=== PATIENT | male | born 1955 | race Two or more races ===

== ENCOUNTER 2025-02-23 16:07 | Emergency (ER) | payer MEDICARE, MEDICAID, SELFPAY ==
[2025-02-23 16:29] VITALS: BP 167/99; PULSE 77; RESP 18; TEMP 36.5; O2SAT 97; BMI 28.5
--- NOTE | 2025-02-23 16:39 | XR_ITS ---
Examination: Ribs, right, with PA chest, 5 views Technique: Chest PA, RIBS AP, RPO, LPO, AP coned lower ribs 5 views Exam date and time: February 23, 2025, 1644 hours INDICATIONS: Injury to the right chest 3 days ago with rib pain Findings: Normal heart size No pneumothorax Moderate osteopenia Old appearing fracture right fifth rib anteriorly No acute fractures IMPRESSION: Negative for pneumothorax pulmonary contusion or hemothorax No acute rib fractures depicted
--- NOTE | 2025-02-23 16:41 | EDRME_ITS ---
Rapid Medical Screening Exam RME Arrival date/time: 02/23/25 16:07 70-year-old male presents to the emergency department for complaints of right- sided rib pain patient reports he was reaching over a fence on Friday to try to get his dog and when he did so he felt pain immediately in his right side of his ribs patient reports pain since then Chief Complaint: Back Pain/Injury Vital signs: Vital Signs Temperature 97.7 F 02/23/25 16:29 Pulse Rate 77 02/23/25 16:29 Respiratory Rate 18 02/23/25 16:29 Blood Pressure 167/99 H 02/23/25 16:29 Pulse Oximetry (%) 97 02/23/25 16:29 Oxygen Delivery Method Room Air 02/23/25 16:29 Vital signs reviewed by provider: Yes Exam: On exam patient is tenderness over his right rib cage Clinical Impression: Imaging ordered
--- NOTE | 2025-02-23 19:01 | PD.EDBACK ---
ED Back Injury Pain RME/HPI General Chief Complaint: Back Pain/Injury Stated Complaint: R) LOWER BACK PAIN 10/17 Time Seen by Provider: 02/23/25 17:59 Arrival date/time: 02/23/25 16:07 70-year-old male patient came in for evaluation regarding right posterior wall tenderness. Patient told me that he was reaching for something hard and suddenly felt a snap resulting into pain to the right posterior chest wall. Incident happened 2 days ago. Patient denies any shortness of breath denies any cough denies any fever denies any diaphoresis. Denies any other complaints. RME / HPI RME / HPI Narrative: 02/23/25 16:07 70-year-old male presents to the emergency department for complaints of right-sided rib pain patient reports he was reaching over a fence on Friday to try to get his dog and when he did so he felt pain immediately in his right side of his ribs patient reports pain since then Exam: On exam patient is tenderness over his right rib cage Impression: Imaging ordered Related Data Home Medications ?Medication ?Instructions ?Recorded ?Confirmed amlodipine 10 mg tablet 10 mg PO QDAY 03/31/18 12/28/19 aspirin 81 mg tablet,delayed 81 mg PO QDAY 03/31/18 12/28/19 release losartan 100 mg tablet 100 mg PO QDAY 03/31/18 12/28/19 Previous Rx's ?Medication ?Instructions ?Recorded ibuprofen 600 mg tablet 600 mg PO Q8H PRN pain #30 tabs 02/23/25 lidocaine 5 % topical patch 1 patch topical Q24H #15 ea 02/23/25 Allergies Allergy/AdvReac Type Severity Reaction Status Date / Time No Known Allergies Allergy Verified 02/23/25 16:10 Review of Systems Review of Systems Narrative Review of Systems: Review of system reviewed and within normal limits except mentioned in HPI ED Exam Narrative Physical exam: VITAL SIGNS: Reviewed. GENERAL APPEARANCE: Alert and interactive, follows commands, no acute distress, HEAD AND FACE: Non-traumatic. ENT: PERRL, pink conjunctivitis, eyelid no trauma, Mucous membrane moist. NECK: Supple, nontender, no nuchal rigidity. CHEST: + Right posterior chest wall tenderness, no crepitus, no paradoxical movement, no retractions. LUNGS: Clear, well ventilated, symmetric, no rales, no wheezing, no ronchi, no stridor, good breath sounds bilaterally. HEART: Regular rate, regular rhythm, no murmur, no gallops. ABDOMEN: Soft, positive bowel sounds, nondistended, no guarding, nontender, no rebound, no masses, RECTAL: Deferred. GENITAL: Deferred. NEUROLOGICAL: Gross motor function intact sensory function intact, Appropriate for age. MUSCULOSKELETAL: low back nontender, full range of motion. EXTREMITIES: Nontender, full range of motion. SKIN: Color pink, dry, no rash, no lacerations, no abrasions, no contusions. LYMPHATICS: Deferred. Course Quality Measures none Orders Category Date Time Status XR ribs RT min 3V w CXR1V Stat Exams 02/23/25 16:39 Completed Ketorolac Inj [Toradol Inj] Med 02/23/25 19:01 Once 30 mg IM X1 ONE Lidocaine 5% Patch Med 02/23/25 19:01 Once 1 patch TOP X1 ONE Vital Signs Vital signs: Vital Signs Temperature 97.7 F 02/23/25 16:29 Pulse Rate 77 02/23/25 16:29 Respiratory Rate 18 02/23/25 16:29 Blood Pressure 167/99 H 02/23/25 16:29 Pulse Oximetry (%) 97 02/23/25 16:29 Oxygen Delivery Method Room Air 02/23/25 16:29 Back Pain / Injury MDM Narrative MDM Narrative:: 70-year-old male patient came in for evaluation regarding right posterior wall tenderness. Patient told me that he was reaching for something hard and suddenly felt a snap resulting into pain to the right posterior chest wall. Incident happened 2 days ago. Patient denies any shortness of breath denies any cough denies any fever denies any diaphoresis. Denies any other complaints. Chest x-ray came back unremarkable. Results discussed with the patient. Patient was given Toradol and lidocaine patch which ED, and improvement of pain Patient is stable for discharge home Patient data External records reviewed:: None Clinical information provided by:: patient Social determinants that could affect healthcare access:: none Patient has the following chronic illnesses:: Hypertension How is presenting disease/condition affected by chronic disease/condition?: uneffected by Evaluation data The following diagnostics were reviewed and interpreted by me:: radiology exam(s) Lab and/or radiology exams considered but not ordered:: None Interpretation Summary: See above Medications / Prescriptions Medications or Prescriptions considered but not ordered:: None Medication administrations:: Medication Administration History Ketorolac Tromethamine (Ketorolac Inj 30 Mg/Ml Vial) 30 mg IM X1 ONE Stop: 02/23/25 19:02 Lidocaine (Lidocaine 5% 1 Patch) 1 patch TOP X1 ONE Stop: 02/23/25 19:02 Toradol, lidocaine Consultations Consultation(s) initiated? (list below): No Diagnosis Differential diagnosis back pain/injury: strain of lumbar region and other (Intercostal muscle strain, chest wall pain) Most likely diagnosis given after review of the tests above:: Intercostal muscle strain Admission Indicated Admission indicated?: not indicated Explain why admission is indicated or not indicated:: None Admission Request Was there a request for admission?: No Disposition Plan Disposition Plan: Discharge Discharge Attestation Discharge Attestation: The patient and all family members were given an opportunity to ask questions and understood the discharge instructions. Discharge instructions specifically effects, indications for sooner follow up or return to the emergency department, and the expected course of current diagnosis. Patient condition: Stable Discharge Plan Plan Patient Disposition: HOME (Self Care) Discharge Disposition comment: Stable Prescriptions/Referrals Prescriptions/Med Rec: New lidocaine 5 % adhesive patch,medicated 1 patch topical Q24H Qty: 15 0RF Rx Instructions: leave on most painful area for up to 12 hrs ibuprofen 600 mg tablet 600 mg PO Q8H PRN (Reason: pain) Qty: 30 0RF No Action aspirin 81 mg Tablet,Delayed Release (Dr/Ec) 81 mg PO QDAY amlodipine 10 mg Tablet 10 mg PO QDAY losartan 100 mg Tablet 100 mg PO QDAY Referrals: Gus Lam MD [Primary Care Provider, Family Practice] - In 1 week Problem List Clinical Impression: Intercostal muscle strain Patient/Caregiver Discharge Instructions Discharge Activity: activity as tolerated Education Materials: Treating?Strains and Sprains Additional Instructions: Thank you for the opportunity for serving you today. You are stable for discharged . You are advised to: Follow-up with your PCP in 1 to 2 days Return to ED for worsening of symptoms Increase oral fluids Take medication as prescribed Print Language: Sinhala Stand Alone Forms: Janell Award Info., Patient Portal Info Letter JODIE/GUILLERMINA Supervising Physician JODIE/GUILLERMINA Supervising Physician: MD Yash
[2025-02-23] MEDS: KETOROLAC INJ 30 MG/ML VIAL IM (19:34)
[2025-02-23] MEDS: LIDOCAINE 5% 1 PATCH TOP (19:35)
== END 2025-02-23 19:38 | disposition home or self-care (01) ==
PROVIDERS: Emergency Provider Emergency Medicine; PCP Family Medicine
DX: S29.011A Strain of muscle and tendon of front wall of thorax, initial encounter (principal); X50.0XXA Overexertion from strenuous movement or load, initial encounter
CPT/HCPCS: 71101; 96372; 99283; J1885; J3490